=== PATIENT | female | born 1990 | race Caucasian/White ===

== ENCOUNTER 2018-04-12 18:25 | Outpatient (CLI) | payer OTHER | END 2018-04-12 20:18 | disposition home or self-care (01) | LOC: M LDO 18:25 | DX: O36.8130 Decreased fetal movements, third trimester, not applicable or unspecified (principal); O62.2 Other uterine inertia; Z3A.36 36 weeks gestation of pregnancy | CPT/HCPCS: 59025 ==

== ENCOUNTER 2018-05-08 07:21 | Inpatient (IN) | payer OTHER ==
[2018-05-08] MEDS: LACTATED RINGER'S 1000 ML IV (09:15)
[2018-05-08 09:23] LABS: HEMATOCRIT 37.6 % (36.0-47.0); MEAN CORPUSCULAR HEMOGLOBIN 31.6 pg (27.0-33.0); MEAN CORPUSCULAR HGB CONC 34.6 g/dl (32.0-36.5); MEAN CORPUSCULAR VOLUME 91.5 fl (80.0-96.0); PLATELET COUNT, AUTOMATED 190 10^3/uL (150-450); RED BLOOD COUNT 4.11 10^6/uL (4.00-5.40); RED CELL DISTRIBUTION WIDTH 12.9 % (11.5-14.5); WHITE BLOOD COUNT 8.5 10^3/uL (4.0-10.0)
[2018-05-08] MEDS ORDERED: FENTANYL 2MCG/ML ROPIVACAINE 0.2% IN 0.9% NACL 200ML IVBAG As Ordered (09:27)
[2018-05-08] MEDS ORDERED: EPIDURAL COMMENT XX (09:45)
[2018-05-08] MEDS ORDERED: ONDANSETRON 4MG/2ML VIAL (J2405) IV ×2 (09:45→13:15)
[2018-05-08] MEDS ORDERED: NALOXONE INJ 0.4 MG/1 ML VIAL (J2310) IV (09:45)
[2018-05-08] MEDS ORDERED: FENTANYL/ROPIVACAINE/NACL BAG 200 ML EPIDURAL (09:45)
[2018-05-08] MEDS ORDERED: EPIDURAL/PCA KEYS XX (09:45)
[2018-05-08] MEDS ORDERED: diphenhydrAMINE INJ 50MG/ML VIAL (J1200) IV (09:45)
[2018-05-08] MEDS ORDERED: LACTATED RINGER'S 1000 ML IV (09:45)
[2018-05-08] MEDS ORDERED: ePHEDrine SULFATE 25 MG/5 ML(5MG/ML) SYRINGE IV (09:45)
[2018-05-08] MEDS ORDERED: REFRIGERATOR IV KEYS XX (09:45)
[2018-05-08] MEDS ORDERED: OXYTOCIN 30 UNITS IN 0.9% NaCl 500ML IV BAG (J2590) As Ordered (10:01)
[2018-05-08] MEDS: LR 1,000 ML IV (10:27)
[2018-05-08] MEDS: OXYTOCIN DRIP 30 UNITS in APPROPRIATE DILUENT 1 EA IV (13:13)
[2018-05-08] MEDS ORDERED: PROMETHAZINE 25 MG TAB PO (13:15)
[2018-05-08] MEDS ORDERED: METHYLERGONOVINE MALEATE 0.2 MG/ML VIAL (J2210) IM (13:15)
[2018-05-08] MEDS ORDERED: ACETAMINOPHEN 500 MG TAB PO (13:15)
[2018-05-08] MEDS: DOCUSATE SODIUM 100 MG CAP PO (19:52)
[2018-05-08] MEDS: IBUPROFEN 800 MG TAB PO (19:52)
[2018-05-09] MEDS: IBUPROFEN 800 MG TAB PO (05:31)
[2018-05-09] MEDS: PRENATAL VITAMINS CHEWABLE TABLET PO (08:00)
[2018-05-09] MEDS: DOCUSATE SODIUM 100 MG CAP PO (08:01)
== END 2018-05-09 14:20 | disposition home or self-care (01) | DRG 775 ==
LOC: M LDO 07:21 → M LDI 08:40 → M OBS 15:49
PROVIDERS: Obstetrics & Gynecology
DX: O80 Encounter for full-term uncomplicated delivery (principal); Z37.0 Single live birth; Z3A.39 39 weeks gestation of pregnancy